=== PATIENT | female | born 1935 | race American Indian/Alaskan Native ===

== ENCOUNTER 2020-08-20 09:20 | Emergency (ER) | payer MEDICARE ==
[2020-08-20 11:06] VITALS: BP 142/86
--- NOTE | 2020-08-20 11:19 | Emergency Department Report ---
ED General Adult HPI - General Chief complaint: Fall Stated complaint: FALL/HEAD INJURY Time Seen by Provider: 08/20/20 11:00 Source: EMS Mode of arrival: Ambulatory Limitations: No Limitations - History of Present Illness Initial comments: The patient presents to the emergency department from [facility] with a chief complaint of unwitnessed ground-level fall. Patient has mild baseline dementia but is able to answer questions without difficulty. Patient has no complaints. Patient denies chest pain, abdominal pain, shortness of breath. -: unknown Severity scale (0 -10): 0 Improves with: none Worsens with: none Associated Symptoms: denies other symptoms Treatments Prior to Arrival: none ED Review of Systems ROS: Stated complaint: FALL/HEAD INJURY Other details as noted in HPI Comment: All other systems reviewed and negative Constitutional: denies: chills, fever Eyes: denies: eye pain, eye discharge, vision change ENT: denies: ear pain, throat pain Respiratory: denies: cough, shortness of breath, wheezing Cardiovascular: denies: chest pain, palpitations Endocrine: no symptoms reported Gastrointestinal: denies: abdominal pain, nausea, diarrhea Genitourinary: denies: urgency, dysuria, discharge Musculoskeletal: denies: back pain, joint swelling, arthralgia Skin: denies: rash, lesions Neurological: denies: headache, weakness, paresthesias Psychiatric: denies: anxiety, depression Hematological/Lymphatic: denies: easy bleeding, easy bruising ED Past Medical Hx - Past Medical History Previous Medical History?: Yes Hx Hypertension: Yes Hx Dementia: Yes (dementia) - Surgical History Additional Surgical History: unknown - Social History Smoking Status: Never Smoker ED Physical Exam - General Limitations: No Limitations General appearance: alert, in no apparent distress - Head Head exam: Present: atraumatic, normocephalic - Eye Eye exam: Present: normal appearance, PERRL, EOMI - ENT ENT exam: Present: mucous membranes moist, other (Paracervical tenderness to palpation) - Neck Neck exam: Present: normal inspection - Respiratory Respiratory exam: Present: normal lung sounds bilaterally. Absent: respiratory distress - Cardiovascular Cardiovascular Exam: Present: regular rate, normal rhythm. Absent: systolic murmur, diastolic murmur, rubs, gallop - GI/Abdominal GI/Abdominal exam: Present: soft, normal bowel sounds. Absent: distended, tenderness - Extremities Exam Extremities exam: Present: normal inspection - Back Exam Back exam: Present: normal inspection - Neurological Exam Neurological exam: Present: alert, CN II-XII intact. Absent: motor sensory deficit - Psychiatric Psychiatric exam: Present: normal affect, normal mood - Skin Skin exam: Present: warm, dry, intact, normal color. Absent: rash ED Course Vital Signs 08/20/20 11:00 Temperature 98.1 F Pulse Rate 86 Respiratory 18 Rate Blood Pressure 142/86 Blood Pressure 142/87 [Right] O2 Sat by Pulse 100 Oximetry ED Medical Decision Making - Radiology Data Radiology results: report reviewed Critical care attestation.: If time is entered above; I have spent that time in minutes in the direct care of this critically ill patient, excluding procedure time. ED Disposition Clinical Impression: Fall, Closed head injury Disposition: TO HOME OR SELFCARE Is pt being admited?: No Does the pt Need Aspirin: No Condition: Stable Instructions: Head Injury, Adult, [id number] Additional Instructions: return if worse Referrals: CEE JENSEN MD [Primary Care Provider] - 3-5 Days Time of Disposition: 13:44
--- NOTE | 2020-08-20 11:52 | XRay Report ---
PELVIS HISTORY: Fall, pelvic pain COMPARISON: None. TECHNIQUE: AP radiograph(s) of the pelvis obtained. FINDINGS: Bones: No fracture or dislocation. Osteopenia. Joint spaces: Maintained. Soft Tissues: No significant abnormality. Additional findings: None. IMPRESSION: 1. No acute abnormality. Signer Name: Yadiel Johnston MD Signed: 08/20/2020 11:47 AM Workstation Name: [employer]
--- NOTE | 2020-08-20 12:37 | Cat Scan Report ---
CT head/brain wo con INDICATION / CLINICAL INFORMATION: 84 years Female; unwitnessed fall. TECHNIQUE: Routine CT head without contrast. All CT scans at this location are performed using CT dos e reduction for ALARA by means of automated exposure control. 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 Otherwise, no acute hemorrhage, mass effect, midline shift, hydrocephalus, or acute, large territori al infarct. Mild cerebral atrophy. Mild degree of hippocampal atrophy suggested bilaterally. There are moderate areas of decreased attenuation in the white matter of the cerebral hemispheres. Th felicia are nonspecific findings and may be related to microangiopathy (hypertension, diabetes, atheroscl erosis), given the patient's age. It might be difficult to evaluate for small areas of ischemia witho ut diffusion imaging by MRI. CRANIOCERVICAL JUNCTION: No significant abnormality. ORBITS: No significant abnormality of visualized orbits. SINUSES / MASTOIDS: Mild mucosal thickening in the ethmoids. There may be a polyp in the left nasal a [place] region. ADDITIONAL FINDINGS: Subcutaneous soft tissue swelling is seen in the right frontal region. No signs of underlying calvarial fracture appreciated. Atherosclerotic disease is seen in the anterior and po sterior circulation. IMPRESSION: 1. No focal intra-axial mass, hemorrhage, hydrocephalus, or acute, large territorial infarct. 2. No significant interval change in the appearance of a colloid cyst when compared with prior exam. Signer Name: Carlito Avendaño MD, III Signed: 08/20/2020 12:33 PM Workstation Name: [email or web address]
--- NOTE | 2020-08-20 12:50 | Cat Scan Report ---
CT CERVICAL SPINE WITHOUT CONTRAST INDICATION: unwitnessed fall. TECHNIQUE: Axial CT images of the spine were obtained. Sagittal and coronal reformatted images were produced. Al l CT scans at this location are performed using CT dose reduction for ALARA by means of automated exp osure control. COMPARISON: None available. FINDINGS: ACUTE FRACTURE(S) OR SUBLUXATION: None. SPINAL DEGENERATIVE CHANGES: There is moderate degenerative disc disease at C3-4, C4-5, C5-6, and C6- 7 with reactive endplate osteophyte formation. There is no appreciable significant spinal canal or ne ural foraminal narrowing. There is moderate right facet DJD from C2 through C7. PARASPINAL SOFT TISSUES: No soft tissue swelling or other acute abnormalities. ADDITIONAL FINDINGS: There are atherosclerotic calcifications in the bilateral carotid bulbs. IMPRESSION: 1. No acute fracture or subluxation in the spine in neutral position. Signer Name: Pelon Boateng MD Signed: 08/20/2020 12:46 PM Workstation Name: [id number]
== END 2020-08-20 17:49 | disposition home or self-care (01) ==
LOC: ED 09:20
DX: S09.90XA Unspecified injury of head, initial encounter (principal); I10 Essential (primary) hypertension; F03.90 Unspecified dementia, unspecified severity, without behavioral disturbance, psychotic disturbance, mood disturbance, and anxiety; W18.30XA Fall on same level, unspecified, initial encounter; Y93.89 Activity, other specified; Y92.89 Other specified places as the place of occurrence of the external cause; Y99.8 Other external cause status
CPT/HCPCS: 70450; 72125; 72170

== ENCOUNTER 2021-02-13 05:52 | Emergency (ER) | payer MEDICARE ==
[2021-02-13] MEDS ORDERED: DEXTROSE 50% IN WATER (25GM) 50 ML SYRINGE IV ONE ×3 (05:56→14:08)
--- NOTE | 2021-02-13 06:01 | Emergency Department Report ---
ED CPR HPI - General Chief Complaint: Cardiac Arrest/CPR Stated Complaint: CARDIAC ARREST Time Seen by Provider: 02/13/21 05:57 Source: EMS Mode of arrival: Stretcher Limitations: Altered Mental Status, Physical Limitation - History of Present Illness Initial Comments: Patient is an 85-year-old female who presents for cardiac arrest. Patient brought in from a local alf. Patient brought in by EMS. Reports he continues. Patient's been down for approximately 35 minutes prior to EMS arrival. EMS gave the patient 3 rounds of epi and bicarb. Patient also found to have a low glucose and EMS gave the patient D50. MD Complaint: found unresponsive -: minute(s) Place: MO/SNF Bystander CPR Performed: No AED Applied by Bystander/Business Information Manager: No Shock Advised: No Initial Findings in the Field: unresponsive, no respirations, no pulse ROSC in the Field: No Associated Injuries: No Treatments Prior to Arrival: intubation, BMV, chest compressions, epinephrine mgs #, sodium bicarbonate, glucose ED Review of Systems ROS: Stated complaint: CARDIAC ARREST Other details as noted in HPI Comment: Unobtainable due to pts medical conditions ED Past Medical Hx - Past Medical History Previous Medical History?: Yes Hx Hypertension: Yes Hx Diabetes: Yes Hx Dementia: Yes (dementia) - Surgical History Past Surgical History?: No Additional Surgical History: unknown - Family History Family history: no significant - Social History Smoking Status: Never Smoker ED Physical Exam - General General appearance: other - Head Head exam: Present: atraumatic, normocephalic - Eye Eye exam: Present: other (Pupils fixed and dilated) - ENT ENT exam: Present: mucous membranes dry - Neck Neck exam: Present: normal inspection - Respiratory Respiratory exam: Present: other (Patient intubated by EMS and into placement was verified with bilateral breath sounds.). Absent: respiratory distress, wheezes - Cardiovascular Cardiovascular Exam: Present: other (No pulse noted) - GI/Abdominal GI/Abdominal exam: Present: soft - Extremities Exam Extremities exam: Present: normal inspection, other (Right lower extremity IO noted) - Back Exam Back exam: Present: normal inspection - Neurological Exam Neurological exam: Present: altered - Skin Skin exam: Present: warm, dry, normal color. Absent: rash ED Course - Reevaluation(s) Reevaluation #1: Patient arrived via EMS. 4 cm. Patient transferred to our gurney. CPR continued. 02/13/21 05:51 Reevaluation #2: resuscitation efforts were terminated due to no signs of life. Patient's pupils are fixed and dilated. No cardiac motion, no pulse no asystole on the monitor. Code ran in accordance with ACLS guidelines. See code note. 02/13/21 05:56 ED Medical Decision Making - Medical Decision Making Patient is a 85-year-old female presents emergency room with cardiac arrest. Patient brought in from a local alf. Patient's downtime is approximately 30 - 35 minutes prior to arrival. Patient report received from EMS. EMS gave the patient 3 rounds of epi and bicarb. Patient was found to have a low sugar. Patient given amp of D50. Patient was intubated by EMS. Placement was verified during initial evaluation. [place] and CPR was continued. Code ran according to patient's current. Patient was given a round of epi and given 2 A of D50. Patient denies have any signs of life. Patient had no pulse, no cardiac motion, pupils are fixed and dilated, asystole on the monitor. family support given once the family arrives. Radio report was received from EMS prior to their arrival. Critical care time documented due to the multiple reassessments, continuous and prolonged time at the bedside. - Differential Diagnosis Cardiac arrest, hypoglycemia arrest Critical Care Time: Yes Critical care time in (mins) excluding proc time.: 35 Critical care attestation.: If time is entered above; I have spent that time in minutes in the direct care of this critically ill patient, excluding procedure time. Critical Care Time: 35 minutes ED Disposition Clinical Impression: Cardiac arrest Disposition: DC-20 Is pt being admited?: No Does the pt Need Aspirin: No Condition: Undetermined Time of Disposition: 06:24
[2021-02-13 06:38] VITALS: BP 0/0
[2021-02-13] MEDS ORDERED: EPINEPHrine 1 MG/10 ML SYRINGE ONE (14:08)
== END 2021-02-13 09:53 ==
LOC: ED 05:52
DX: I46.9 Cardiac arrest, cause unspecified (principal); I10 Essential (primary) hypertension; E11.9 Type 2 diabetes mellitus without complications; F03.90 Unspecified dementia, unspecified severity, without behavioral disturbance, psychotic disturbance, mood disturbance, and anxiety
CPT/HCPCS: 92950; 99285; J0171